=== PATIENT | male | born 2005 | race Caucasian/White ===

== ENCOUNTER 2024-12-27 12:48 | Emergency (ER) | payer OTHER, SELFPAY ==
--- NOTE | ~2024-12-27 | XR_ITS ---
EXAMINATION: XR knee RT min 4V, 12/27/2024 14:20 CDT HISTORY: LONGTERM COMPARISON: No comparisons available. Findings: No acute fracture or malalignment. No significant degenerative changes. Soft tissues unremarkable. Impression: No acute fracture or malalignment. Reviewed, dictated and finalized at location P. Impression: No acute fracture or malalignment.
--- OUTSIDE RECORDS SUMMARY | 2024-12-27 12:51 | XMS_ITS | Clinical Summary ---
Author Organization [facility] [employer] Address [address] [place] [address] Care Team Providers Care Cell Room Supervisor Name Role Phone Kathy Taylor MD Primary Care Provider [phone] Source Comments [facility],non-owned Affiliates and Associated Physician Practices is amultiple site organization consisting of ambulatory clinics and hospital sitesin [place], [place], [place] and [place]. This disclosure is being madepursuant to the Care Everywhere program and may not contain all information available regarding this patient. Last updated 17.[facility] [employer] Allergies Active Allergy Reactions Criticality Noted Date Comments Penicillins Unknown 09/22/2021 Medications * Be aware that medications may not be up to date on this document. Alwaysverify current medications with the patient. No known medications Active Problems No known active problems Immunizations Immunization Administration Dates Next Due DTAP, HISTORIC VACCINE 10/05/2009,07/18/2005 DTAP/HEP B/IPV 2004,2004,2004 HEP A PED/ADULT VACCINE 05/03/2006,07/18/2005 HEP B VACCINE 2004 HIB VACCINE 07/18/2005,2004,2004 INFLUENZA VACCINE 03/01/2015, 4,11/03/2008, 7,02/05/2006,02/21/2005 MENINGOCOCAL MENINGITIS 08/26/2020 MENINGOCOCCAL ACWY (MCV4P) VAC IM 09/09/2015 MMR VACCINE 10/05/2009,04/25/2005 POLIO,HISTORIC VACCINE 10/05/2009 Pneumococcal Pcv13 Conj 04/25/2005,10/17,2004, 5 TDAP, HISTORIC VACCINE 09/09/2015 VARICELLA 10/05/2009,04/25/2005 Family History Medical History Relation Name Comments High Blood Pressure Maternal Grandfather Cancer Mother Relation Name Status Comments Maternal Grandfather Mother Social History Tobacco Use Types Packs/Day Years Used Date Smoking Tobacco: Never Assessed PHQ-2 Answer Date Recorded PHQ2 TOTAL SCORE 0 09/22/2021 Sex and Gender Information Value Date Recorded Sex Assigned at Not on file Legal Sex Male 8:36 AM CDT Gender Identity Not on file Sexual Orientation Not on file Last Filed Vital Signs Vital Sign Reading Time Taken Comments Blood Pressure 129/82 09/22/2021 1:54 PM CDT Pulse 89 09/22/2021 1:54 PM CDT Temperature 36.5 C (97.7 F) 09/22/2021 1:54 PM CDT Respiratory Rate - - Oxygen Saturation - - Inhaled Oxygen Concentration - - Weight 73.9 kg (163 lb) 09/22/2021 1:54 PM CDT Height 175.9 cm (5' 9.25) 09/22/2021 1:54 PM CD T Body Mass Index 23.9 09/22/2021 1:54 PM CDT Plan of Treatment Health Maintenance Due Date Last Done Comments HIV SCREENING 2019 HPV VACCINE (1 - Male 3-dose series) 2019 MENINGOCOCCAL (Group B) VACC INE SHARED DECISION-MAKING (1 of 2 - Standard) 2020 HEPATITIS C SCREENING 04/14/2022 DEPRESSION SCREENING 03/26/2024 09/22/2021 COVID-19 VACCINE ( - 2023-2 5 season) 2024 INFLUENZA VACCINE (#1) 2024 5, 02/17/2014, 11/03/2008, Additional history exists DTAP/TDAP/TD VACCINES (7 - T d or Tdap) 09/08/2025 09/09/2015, 10/05/2009, 07/18/2005, Additional history exists ZOSTER VACCINE (1 of 2) 2054 HEPATITIS B VACCINE Completed 2004, 2004, 2004, Additional history exists PNEUMOCOCCAL VACCINE Completed 04/25/2005, 2004, 2004, Additional history exists HIB VACCINE Completed 07/18/2005, 07/25, 2004 MENINGOCOCCAL GROUPS A/C/Y/W VACCINE Completed 08/26/2020, 09/09/2015 Insurance [facility] Care Teams Cell Room Supervisor Relationship Specialty Start Date End Date Kathy Taylor MD [address] [place] [id number] PCP - General Pediatrics 09/22/21
[2024-12-27 12:55] VITALS: BP 160/80; PULSE 77; RESP 18; TEMP 36.4; O2SAT 99
[2024-12-27] MEDS: MORPHINE SULFATE (*CRX) 4 MG/ML INJ IV PUSH (13:24)
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
--- OUTSIDE RECORDS SUMMARY | 2024-12-27 13:46 | XMS_ITS | Clinical Summary ---
Author Organization [facility] Address [address] [place] [address] Care Team Providers Care Retort Pre Cooker Name Role Phone Kathy Taylor MD Primary Care Provider [phone] Source Comments [facility],non-owned Affiliates and Associated Physician Practices is amultiple site organization consisting of ambulatory clinics and hospital sitesin [place], [place], [place] and [place]. This disclosure is being madepursuant to the Care Everywhere program and may not contain all information available regarding this patient. Last updated 17.[facility] Allergies Active Allergy Reactions Criticality Noted Date [...] GROUPS A/C/Y/W VACCINE Completed 08/26/2020, 09/09/2015 Insurance [facility] Care Teams Retort Pre Cooker Relationship Specialty Start Date End Date Kathy Taylor MD [address] [place] [id number] PCP - General Pediatrics 09/22/21
[2024-12-27] MEDS: LIDO 2%/EPINEPHRINE 1:100,000 20 ML VIAL (13:52)
== END 2024-12-27 15:49 | disposition home or self-care (01) ==
PROVIDERS: Emergency Provider Preventive Medicine Aerospace Medicine
DX: S81.011A Laceration without foreign body, right knee, initial encounter (principal); V28.49XA Other motorcycle driver injured in noncollision transport accident in traffic accident, initial encounter
CPT/HCPCS: 12005; 73564; 96374; 99284; J2004; J2270